=== PATIENT | male | born 1950 | race African-American/Black ===

== ENCOUNTER 2016-11-16 08:12 | Day surgery (SDC) | payer BC, OTHER ==
[2016-11-10 11:00] LABS: HEMATOCRIT 42.6 % (40.0-51.0); HEMOGLOBIN 14.4 g/dL (13.6-17.8)
[2016-11-10 11:13] LABS: BUN (BLOOD UREA NITROGEN) 19 MG/DL (6-23); CALCIUM, SERUM 9.5 MG/DL (8.5-10.4); CHLORIDE, SERUM 105 MMOL/L (96-112); CO2 (CARBON DIOXIDE) 27 MMOL/L (24-34); CREATININE 1.11 MG/DL (0.70-1.30); GFR AFRICAN AMERICAN 81 ML/MIN (>=60); GFR NON AFRICAN AMERICAN 70 ML/MIN (>=60); GLUCOSE, SERUM 97 MG/DL (60-99); POTASSIUM, SERUM 4.9 MMOL/L (3.5-5.3); SODIUM, SERUM 140 MMOL/L (135-148)
--- NOTE | ~2016-11-16 | OP ---
Record Of Operation [facility] [address] [place]. 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 PROCEDURE PERFORMED: Direct laryngoscopy with biopsy of anterior commissure glottic tumor. SURGEON: Barbara Hobson M.D. IT SOFTWARE DEVELOPER: None. ANESTHESIA: General. COMPLICATIONS: None. CONDITION: Stable to recovery. INDICATIONS: 66-year-old male with a glottic tumor noted at the anterior commissure just subglottic, exophytic, white appearing, and pedunculated. The risks, benefits, and alternatives to excision were explained and he agreed. PROCEDURE IN DETAIL: The patient was identified in preoperative holding, taken back to the operating room, and placed supine on the operating room table. General anesthesia was established with a #6 endotracheal tube. He was prepped and draped in a standard fashion for the operation. A time-out was called, the patient and procedure were confirmed. Initially, a Dedo anterior commissure scope was used to try to provide access to the anterior commissure, although, it was a tight fit and exposure was poor, so, I switched to a Holinger anterior commissure laryngoscope, once, I was able to get better exposure and I was able to use an upbiting cup forceps to excise the majority of the polyp. I used a 30 degree endoscope to confirm excision. It was difficult to know for sure if margins were clear. The frozen section showed a squamous type polyp, but no obvious cancer. Adrenaline soaked pledgets were used for hemostasis. The laryngoscope was removed. His gums were protected with a soft moist Ray-Linda and there was no evidence of injury there. He had with a frozen section was non-confirmatory for malignancy. He was awakened and taken recovery in stable condition. He had a very difficult exposure with this procedure and would be difficult to perform any additional surgery in the anterior commissure given the exposure we had. PH/MODL Barbara Hobson, Record Of Operation [facility] [address] [place]. [address] NAME: ANTOLIN CURRY JR : 54 STATUS : [facility] PAT#: [id number] AGE: 66 ADM/REG DATE : 11/16/16 MR#: [id number] REPORT SERV DATE: 11/16/16 DICTATED BY: BARBARA HOBSON DATE: 11/16/16 REPORT STATUS : Draft TRANSCRIBED BY: STONE DATE: 11/16/16 Jorje / [id number] CC: Barabra Hobson M.D.
[~2016-11-16 08:12] MED LIST: ASAB PO; COZ25 PO; GLUCPH PO; NORV10 PO; XALAT OPH
== END 2016-11-16 19:10 | disposition home or self-care (01) ==
LOC: SDC 08:12
PROVIDERS: Specialist
PROC: 0CBS8ZX Excision of Larynx, Via Natural or Artificial Opening Endoscopic, Diagnostic (ICD-10-PCS; principal; 2016-11-16 10:15)
DX: J38.7 Other diseases of larynx (principal); I10 Essential (primary) hypertension; E11.622 Type 2 diabetes mellitus with other skin ulcer; I73.9 Peripheral vascular disease, unspecified; F17.210 Nicotine dependence, cigarettes, uncomplicated; J44.9 Chronic obstructive pulmonary disease, unspecified; Z88.0 Allergy status to penicillin
CPT/HCPCS: 80048; 82962; 85014; 85018; 88305; 88307; 88331; 88332; 93005; 94640; A9270-GY; J0330; J2250; J3010

== ENCOUNTER 2016-12-01 13:53 | Emergency (ER) | payer BC, OTHER ==
[2016-12-01 12:49] LABS: BASOPHILS 0 %; EOSINOPHILS 2.2 %; EOSINOPHILS ABSOLUTE 0.14 10/3/uL (0.0-0.53); HEMATOCRIT 38.6 % (40.0-51.0); HEMOGLOBIN 13.1 g/dL (13.6-17.8); IMMATURE GRANULOCYTES 0.2 %; IMMATURE GRANULOCYTES ABSOLUTE 0.01 10/3/uL (0.0-0.11); LYMPHOCYTES 35.7 %; LYMPHOCYTES ABSOLUTE 2.27 10/3/uL (0.67-4.30); MEAN CORPUS HGB CONC 33.9 g/dL (32.0-36.0); MEAN CORPUSCULAR HEMOGLOB 29.7 pg (26.0-34.0); MEAN CORPUSCULAR VOLUME 87.5 fL (80-100); MEAN PLATELET VOLUME 10.7 fL (9.2-13.0); MONOCYTES 6.4 %; MONOCYTES ABSOLUTE 0.41 10/3/uL (0.21-1.20); NEUTROPHILS 55.5 %; NEUTROPHILS ABSOLUTE 3.53 10/3/uL (2.02-8.40); PLATELET COUNT 279 10/3/uL (150-400); RBC DISTRIBUTION WIDTH 13.8 % (12.0-16.0); RED CELL COUNT 4.41 10/6/uL (4.7-6.1); WHITE BLOOD CELLS 6.4 10/3/uL (4.5-10.5)
[2016-12-01 12:50] LABS: MANUAL DIFF NO %
[2016-12-01 13:03] LABS: A/G RATIO 0.9 (0.7-1.9); ALBUMIN 3.4 G/DL (3.5-5.0); ALKALINE PHOSPHATASE 122 U/L (45-117); BUN (BLOOD UREA NITROGEN) 16 MG/DL (6-23); CALCIUM, SERUM 9.6 MG/DL (8.5-10.4); CHLORIDE, SERUM 106 MMOL/L (96-112); CREATININE 1.13 MG/DL (0.70-1.30); GFR AFRICAN AMERICAN 79 ML/MIN (>=60); GFR NON AFRICAN AMERICAN 68 ML/MIN (>=60); GLOBULIN 3.8 G/DL (2.5-4.1); GLUCOSE, SERUM 124 MG/DL (60-99); POTASSIUM, SERUM 3.8 MMOL/L (3.5-5.3); SGOT(AST) 10 U/L (5-40); SGPT(ALT) 17 U/L (5-65); SODIUM, SERUM 138 MMOL/L (135-148); TOTAL BILIRUBIN 0.3 MG/DL (0-1.2); TOTAL PROTEIN 7.2 G/DL (6.0-8.5)
[2016-12-01 13:04] LABS: CO2 (CARBON DIOXIDE) 28 MMOL/L (24-34)
== END 2016-12-01 14:00 | disposition home or self-care (01) ==
LOC: ER 13:53
PROVIDERS: Nurse Practitioner
DX: S92.422A Displaced fracture of distal phalanx of left great toe, initial encounter for closed fracture (principal); I10 Essential (primary) hypertension; E11.9 Type 2 diabetes mellitus without complications; Z88.0 Allergy status to penicillin; X58.XXXA Exposure to other specified factors, initial encounter; Y93.89 Activity, other specified; Z91.013 Allergy to seafood
CPT/HCPCS: 73660-LT; 80053; 82962; 85025; 99283